=== PATIENT | female | born 1975 | race Caucasian/White ===

== ENCOUNTER 2016-12-29 16:23 | Emergency (ER) | payer MEDICARE | END 2016-12-29 23:15 | disposition home or self-care (01) | LOC: ER 16:23 | DX: L02.512 Cutaneous abscess of left hand (principal); I10 Essential (primary) hypertension; Z85.828 Personal history of other malignant neoplasm of skin; F17.210 Nicotine dependence, cigarettes, uncomplicated; Z79.899 Other long term (current) drug therapy | CPT/HCPCS: 10061; 87070; 99070; 99282-25; 99283 ==

== ENCOUNTER 2017-05-27 12:06 | Emergency (ER) | payer OTHER, MEDICARE | END 2017-05-27 16:01 | disposition home or self-care (01) | LOC: ER 12:06 | DX: S13.4XXA Sprain of ligaments of cervical spine, initial encounter (principal); M25.511 Pain in right shoulder; V43.62XA Car passenger injured in collision with other type car in traffic accident, initial encounter; Y92.413 State road as the place of occurrence of the external cause; M54.12 Radiculopathy, cervical region; F17.210 Nicotine dependence, cigarettes, uncomplicated | CPT/HCPCS: 70450; 72125; 81025; 96372; 99283-25 ==